=== PATIENT | male | born 1985 | race Caucasian/White ===

== ENCOUNTER 2019-01-12 15:11 | Emergency (ER) | payer SELFPAY ==
[2019-01-12 15:30] VITALS: BP 127/71
--- NOTE | 2019-01-12 16:19 | UC ---
Skin Complaint HPI - HPI Summary HPI Summary: Other family members have been diagnosed with scabies and this patient is here for a prescription. He denies having any rash however his girlfriend states that he does have some rash on his arms. - History of Current Complaint Chief Complaint: UCSkin Time Seen by Provider: 01/12/19 15:35 Stated Complaint: SKIN Hx Obtained From: Patient Onset/Duration: Gradual Onset Skin Exposure Onset/Duration: Days Ago Timing: Constant Onset Severity: Mild Current Severity: Mild Pain Intensity: 0 Location: Other - Patient is unable to show only any rash at this point in time. Character: Pruritus - He does have some itching of his arms. Aggravating Factor(s): Nothing Alleviating Factor(s): Nothing Associated Signs & Symptoms: Positive: Negative Related History: Other: - Exposure to other family members with scabies. - Allergy/Home Medications Allergies/Adverse Reactions: Allergies Allergy/AdvReac Type Severity Reaction Status Date / Time No Known Allergies Allergy Verified 01/12/19 15:27 PMH/Surg Hx/FS Hx/Imm Hx Previously Healthy: Yes - Surgical History Surgical History: None - Family History Known Family History: Positive: Unknown - Social History Alcohol Use: Occasionally Substance Use Type: None Smoking Status (MU): Current Every Day Smoker Type: Cigarettes Amount Used/How Often: 1/2 PPD Review of Systems All Other Systems Reviewed And Are Negative: Yes Skin: Positive: Other - Patient is unable to show me any rash at this point in time but he does have some itching on his arms. Is Patient Immunocompromised?: No Physical Exam Triage Information Reviewed: Yes Appearance: Well-Appearing, No Pain Distress, Well-Nourished Vital Signs: Initial Vital Signs Temp 97.6 F 01/12/19 15:27 Pulse 100 01/12/19 15:27 Resp 15 01/12/19 15:27 BP 127/71 01/12/19 15:27 Pulse Ox 99 01/12/19 15:27 Vital Signs Reviewed: Yes Skin Exam: Normal - At this point in time I do not visualize any rash that looks like scabies however the patient does have itchy arms. Because there is some the family I am going to treat her prophylactically. Course/Dx - Course Course Of Treatment: He is comfortable here with the only complaint being he has been exposed to other family members have scabies however he does not presently have a rash. He does have some itching on his arms. - Differential Diagnoses - Skin Complaint Differential Diagnoses: Scabies - Diagnoses Provider Diagnosis: Scabies exposure Discharge - Sign-Out/Discharge Documenting (check all that apply): Patient Departure All imaging exams completed and their final reports reviewed: No Studies - Discharge Plan Condition: Fair Disposition: HOME Prescriptions: Permethrin [Elimite] 60 gm TP ONCE #1 tube Patient Education Materials: Scabies (ED) Referrals: [facility] [Outside] No Primary Care Phys,NOPCP [Primary Care Provider] - Additional Instructions: Launder all bedding and clothing on high heat. Follow up your primary care provider in one week if no improvement. - Billing Disposition and Condition Condition: FAIR Disposition: Home
== END 2019-01-12 16:16 | disposition home or self-care (01) ==
LOC: UCCORT 15:11
DX: Z20.89 Contact with and (suspected) exposure to other communicable diseases (principal); F17.210 Nicotine dependence, cigarettes, uncomplicated
CPT/HCPCS: 99212; G0463